=== PATIENT | male | born 1995 | race Caucasian/White ===

== ENCOUNTER 2022-07-18 14:03 | Emergency (ER) | payer OTHER ==
[~2022-07-18] VITALS: Ht 188 cm; Wt 65.8 kg
[2022-07-18 17:35] VITALS: BP 118/70
== END 2022-07-18 17:35 | disposition home or self-care (01) ==
LOC: ER 14:09
DX: S13.4XXA Sprain of ligaments of cervical spine, initial encounter (principal); V89.2XXA Person injured in unspecified motor-vehicle accident, traffic, initial encounter; Y93.89 Activity, other specified; Y92.410 Unspecified street and highway as the place of occurrence of the external cause; Y99.8 Other external cause status
CPT/HCPCS: 70450-TC; 72125-TC

== ENCOUNTER 2023-08-06 16:41 | Emergency (ER) | payer MEDICAID, OTHER ==
[~2023-08-06] VITALS: Ht 188 cm; Wt 65.8 kg
[2023-08-06 17:28] VITALS: TEMP 98.6
[2023-08-06] MEDS ORDERED: ONDANSETRON HCL/PF 4 MG/2 ML VIAL ONE (17:47)
[2023-08-06] MEDS ORDERED: FAMOTIDINE/PF INJ 20 MG/2 ML VIAL IV ONE (17:47)
[2023-08-06] MEDS: FAMOTIDINE/PF INJ 20 MG/2 ML VIAL IV ONE (18:00)
[2023-08-06] MEDS: MAG HYDROX/AL HYDROX/SIMETH 30 ML UDC PO ONE (18:00)
[2023-08-06] MEDS: IV NS 0.9% 1,000 ML BAG IV ONE (18:00)
[2023-08-06] MEDS: ONDANSETRON HCL/PF 4 MG/2 ML VIAL IVP ONE (18:00)
[2023-08-06] MEDS ORDERED: MAG HYDROX/AL HYDROX/SIMETH 30 ML UDC ONE (20:13)
[2023-08-06 21:14] LABS: BASOPHILS % (AUTO) 0.2 % (0.0-2.0); EOSINOPHILS # (AUTO) 0.1 K/uL (0.0-0.7); EOSINOPHILS % (AUTO) 0.8 % (0.0-6.0); HEMATOCRIT 41 % (39-51); HEMOGLOBIN 13.8 g/dL (13.5-17.5); LYMPHOCYTES # (AUTO) 0.9 K/uL (0.8-4.8); LYMPHOCYTES % (AUTO) 6.9 % (20.0-44.0); MEAN CORPUSCULAR HEMOGLOBIN 29 PG (26.0-33.0); MEAN CORPUSCULAR HGB CONC 34 g/dl (31.0-36.0); MEAN CORPUSCULAR VOLUME 85 fL (80-96); MONOCYTES # (AUTO) 1.1 K/uL (0.1-1.30); MONOCYTES % (AUTO) 7.7 % (2.0-12.0); NEUTROPHILS # (AUTO) 11.7 K/uL (1.8-8.9); NEUTROPHILS % (AUTO) 84.4 % (43.0-81.0); PLATELET COUNT (AUTO) 211 K/uL (150-450); RED BLOOD CELL COUNT(AUTO) 4.77 MIL/uL (4.5-6.0); RED CELL DISTRIBUTION WIDTH 12.6 % (11.5-15.0); WHITE BLOOD COUNT (AUTO) 13.8 K/uL (4.3-11.0)
[2023-08-06 22:05] LABS: CREATININE 0.6 mg/dL (0.6-1.3); POTASSIUM 4.3 mmol/L (3.5-5.1)
[2023-08-06 22:14] LABS: ALBUMIN 4.2 g/dL (3.4-5.0); BILIRUBIN,DIRECT 0.3 mg/dL (0.0-0.2); BILIRUBIN,TOTAL 1.4 mg/dL (0.2-1.0); TOTAL PROTEIN, SERUM 7.9 g/dL (6.4-8.2)
[2023-08-06] MEDS ORDERED: SUCR1TAB PO (22:40)
[2023-08-06 22:56] VITALS: BP 121/79; O2SAT 100
== END 2023-08-06 22:57 | disposition home or self-care (01) ==
LOC: ER 16:42
DX: R10.13 Epigastric pain (principal); R11.10 Vomiting, unspecified; Z79.899 Other long term (current) drug therapy
CPT/HCPCS: 99285; 96374; 96361; 76700; 96375; 85025; 80048; 83690; 80076; 36415; J3490; J2405; J7030